=== PATIENT | female | born 1980 | race Two or more races ===

== ENCOUNTER 2025-03-09 10:20 | Emergency (ER) | payer OTHER ==
[~2025-03-09] VITALS: Ht 160 cm; Wt 64.4 kg
[2025-03-09 11:02] VITALS: BP 108/74; O2SAT 96
[2025-03-09] MEDS ORDERED: FOSAMAX70 MG PO (11:03)
[2025-03-09] MEDS ORDERED: KETOROLAC TROMETHAMINE 15 MG VIAL IV STA (11:46)
[2025-03-09] MEDS ORDERED: METHYLPREDNISOLONE SOD SUCC 40 MG VIAL IV STA (11:47)
[2025-03-09] MEDS ORDERED: ORPHENADRINE CITRATE 30 MG/ML AMPUL IM STA (11:47)
[2025-03-09] MEDS ORDERED: KETOROLAC TROMETHAMINE 30 MG VIAL ONE (11:48)
[2025-03-09] MEDS ORDERED: ORPHENADRINE CITRATE 30 MG/ML AMPUL ONE (11:48)
[2025-03-09] MEDS ORDERED: METHYLPREDNISOLONE SOD SUCC 40 MG VIAL ONE (11:49)
[2025-03-09] MEDS ORDERED: CELEBREX200MG PO (13:25)
[2025-03-09] MEDS ORDERED: MEDROLPACK PO (13:25)
[2025-03-09] MEDS ORDERED: METAXALONE800 MG PO (13:25)
== END 2025-03-09 14:12 | disposition home or self-care (01) ==
LOC: ER 10:32
DX: M94.0 Chondrocostal junction syndrome [Tietze] (principal); R07.89 Other chest pain